=== PATIENT | male | born 1960 | race Caucasian/White ===

== ENCOUNTER 2016-10-25 11:35 | Emergency (ER) | payer BC ==
--- NOTE | 2016-10-25 11:53 | PDOC ---
History of Present Illness - General Stated Complaint: SORE THROAT Time Seen by Provider: 10/25/16 11:43 History Source: Patient Exam Limitations: No Limitations - History of Present Illness Initial Comments: 10/25/16 12:08 56y M hx of IDDM presents with sore throat x 2 days. Pt was feeling well on wednesday, on wednesday he had some painin his throat but has worsened and it is very painful to eat/drink. The pt denies any fever, nasal congestion, cogh, sob , back pain, chest pain. no recent travel, known sick contacts. no changes in voice, difficulty breathing. Past History - Past Medical History Allergies/Adverse Reactions: Allergies Allergy/AdvReac Type Severity Reaction Status Date / Time No Known Allergies Allergy Verified 10/25/16 11:48 Home Medications: Ambulatory Orders Atorvastatin Ca [Lipitor -] 80 mg PO HS 01/02/14 Glimepiride [Amaryl] 4 mg PO DAILY 01/02/14 Insulin Glargine,Hum.rec.anlog [Lantus (10mL VIAL) -] 60 units SQ HS 01/02/14 Metformin HCl [Glucophage] 1,500 mg PO DAILY 01/02/14 Sitagliptin Phosphate [Januvia] 25 mg PO DAILY 10/25/16 Diabetes: Yes - Psycho/Social/Smoking Cessation Hx Anxiety: No Suicidal Ideation: No Smoking History: Never smoked Have you smoked in the past 12 months: No Hx Alcohol Use: Yes (WEEKENDS) Substance Use Type: None Review of Systems - Review of Systems Able to Perform ROS?: Yes Comments:: 10/25/16 12:23 Constitutional - no reported Fever, Chills, HEENT: + sore throat no reported vision changes Respiratory: no reported cough, sob, hemoptysis Cardiac: no reported chest pain, palpitations, light headedness, leg swelling Abd/GI: no reported abd pain, nausea, vomiting, blood per rectum, melena, diarrhea : no reported dysuria, frequency, discharge Musculskelatal - no reported back pain, joint swelling skin - no reported bruising, erythema, rash neurological: no reported headache, numbness, focal weakness, tingling, ataxia, hematologic: no reported anemia, easy bruising, easy bleeding *Physical Exam - Physical Exam Comments: 10/25/16 12:23 GENERAL: The patient is awake, alert, and fully oriented, Nontoxic - in no acute distress. HEAD: Normocephalic, atraumatic. EYES: extraocular movements intact, sclera anicteric, conjunctiva clear. ENT: Normal voice, Moist mucous membranes, mild posterior pharyngeal erythema w /o exudates, no cervical lphadenopathy noted NECK: Normal range of motion, supple LUNGS: Breath sounds equal, clear to auscultation bilaterally. No wheezes, no rhonchi, no rales. HEART: Regular rate and rhythm, normal S1 and S2 without murmur, rub or gallop. ABDOMEN: Soft, nontender, No guarding, no rebound. NEUROLOGICAL: No facial assymetry, Normal speech, Medical Decision Making - Medical Decision Making 10/25/16 12:24 suspect viral pharyngitis no signs of [employer] will ck rapid strep will give decadron and motrin will likely dc with pmd fu 10/25/16 12:37 strep + will give bicilin x 1 will dc with supportive measures and PMD Fu I discussed the physical exam findings, ancillary test results and final diagnoses with the patient. I answered all of the patient's questions. The patient was satisfied with the care received and felt comfortable with the discharge plan and treatment plan. The patient will call their primary care physician within 24 hours to arrange follow-up and will return to the Emergency Department with any new, persistent or worsening symptoms. *DC/Admit/Observation/Transfer Diagnosis at time of Disposition: Acute streptococcal pharyngitis - Discharge Dispostion Disposition: HOME Condition at time of disposition: Improved Admit: No - Referrals Referrals: [facility] [Provider Group] - Patient Instructions Printed Discharge Instructions: DI for Pharyngitis/Tonsillopharyngitis -- Adult Additional Instructions: Return to the emergency department immediately with ANY new, persistent or worsening symptoms. Take motrin as needed for pain You MUST call and follow up with your doctor tomorrow for further evaluation of your symptoms. Results were discussed with you. Please make sure your doctor reviews the results of your emergency evaluation. If you had any xrays during your visit, it was read preliminarily by myself, a Radiologist will review it and if there are any additional findings we will call you. Print Language: [email or web address]
[2016-10-25 11:55] VITALS: BP 141/94; PULSE 95; TEMP 99.4; BMI 30.7
[2016-10-25] MEDS ORDERED: IBUPROFEN 400 MG TABLET (FP) PO ONE ×2 (12:07→12:24)
[2016-10-25] MEDS ORDERED: DEXAMETHASONE 4 MG TABLET (FP) PO ONE (12:07)
[2016-10-25] MEDS ORDERED: predniSONE 10 MG TABLET (UD) ONE (12:24)
[2016-10-25] MEDS ORDERED: PENICILLIN G BENZATHINE 1,200,000 UNIT/2 ML PFS IM ONE ×2 (12:36→12:40)
== END 2016-10-25 12:49 | disposition home or self-care (01) ==
LOC: FER 11:35
DX: J02.0 Streptococcal pharyngitis (principal); B95.0 Streptococcus, group A, as the cause of diseases classified elsewhere; E11.9 Type 2 diabetes mellitus without complications; Z79.4 Long term (current) use of insulin; Z79.84 Long term (current) use of oral hypoglycemic drugs
CPT/HCPCS: 87070; 87430; 99281-25

== ENCOUNTER 2021-12-09 14:01 | Emergency (ER) | payer BC, OTHER ==
[2021-12-09 14:24] VITALS: BP 123/72; PULSE 81; RESP 18; TEMP 97.8; BMI 27.1
[2021-12-09 15:00] LABS: HEMATOCRIT 46.7 % (35.4-49); HEMOGLOBIN 16.6 G/dL (11.7-16.9); MCH 32.1 pg (25.7-33.7); MCHC 35.6 g/dl (32.0-35.9); MEAN CELL VOLUME 90.4 fl (80-96); MEAN PLT VOLUME 9.3 fl (7.5-11.1); PLATELET COUNT 184.7 10^3/uL (134-434); RBC 5.17 10^6/uL (4.00-5.60); RDW 13.2 % (11.9-15.9); WHITE BLOOD COUNT 5.3 10^3/uL (4.0-10.8)
[2021-12-09 15:05] LABS: ALBUMIN 4.1 g/dl (3.4-5.0); BILIRUBIN,TOTAL 0.7 mg/dl (0.2-1); CALCIUM 9.5 mg/dl (8.5-10); CREATININE 0.8 mg/dl (0.55-1.3); TOT PROT 7.4 g/dl (6.4-8.2)
[2021-12-09 15:07] LABS: PLATELET ESTIMATE ADEQUATE
== END 2021-12-09 15:00 | disposition home or self-care (01) ==
LOC: FER 14:01
DX: R07.9 Chest pain, unspecified (principal)
CPT/HCPCS: 36415; 71045-TC-FY; 80053; 84484; 85025; 93005; 99285-25